=== PATIENT | female | born 1990 | race Caucasian/White ===

== ENCOUNTER 2016-08-16 03:45 | Emergency (ER) | payer OTHER ==
[~2016-08-16] VITALS: Ht 167.6 cm; Wt 60.6 kg
[~2016-08-16 03:45] MED LIST: AMOXICILLIN500 M1 PO; BACTRIM,SEPT1 TABLET PO; BENTYL20 MG PO; Chromagen, Feogen, M PO; DEPO-PROVER150 MG/ML IM; Flintstones PO; KEFLEX500 MG PO; MACROBID100 MG PO; MOTRIN800 MG PO; Motrin PO; NAPROSYN500 MG PO; NOHOMEMEDS; Natalcare Rx,Pramile PO; PERCOCET 5/31 TABLET PO; PREDNISONE20 MG PO; PRENATAL1 EACH PO; PROAIR HFA8.5 GM IH; PROPRANOLOL HCL80 M1 PO; ROBITUSSIN AC,T10 ML PO; TAPAZOLE10 MG PO; Tylenol Extra Streng PO; ULTRAM50 MG PO; ZOFRAN ODT4 MG PO; ZOFRAN4 MG PO
[2016-08-16 07:53] VITALS: BP 104/67
== END 2016-08-16 08:16 | disposition home or self-care (01) ==
LOC: EME → EDBD 03:45 → EME 03:45
DX: F10.129 Alcohol abuse with intoxication, unspecified (principal); Y90.5 Blood alcohol level of 100-119 mg/100 ml
CPT/HCPCS: 99281; 99284; G0480

== ENCOUNTER 2016-12-16 16:50 | Emergency (ER) | payer OTHER ==
[~2016-12-16] VITALS: Ht 162.6 cm; Wt 56.2 kg
[2016-12-16] MEDS ORDERED: MOTRIN800 MG PO (18:26)
[2016-12-16 18:54] VITALS: BP 124/79
== END 2016-12-16 18:55 | disposition home or self-care (01) ==
LOC: EME 16:50
DX: S60.221A Contusion of right hand, initial encounter (principal); W22.8XXA Striking against or struck by other objects, initial encounter; E03.9 Hypothyroidism, unspecified
CPT/HCPCS: 73130; 99281; 99283

== ENCOUNTER 2017-01-14 20:27 | Emergency (ER) | payer OTHER ==
[~2017-01-14] VITALS: Ht 162.6 cm; Wt 55.9 kg
[2017-01-14 21:07] LABS: HEMATOCRIT 40.6 % (36.0-46.0); MCH 27.8 PG (29.0-34.0); MCHC 32.5 G/DL (30.0-36.0); MCV 85.7 FL (83-99); MEAN PLAT.VOLUME 11.1 uM^3 (9.5-12.4); PLATELET COUNT 193 K/uL (156-360); RBC DIS.WIDTH-CV 12.4 % (11.8-14.6); RBC DIS.WIDTH-SD 38.6 % (39-53); RED BLOOD COUNT 4.74 M/uL (3.80-5.20); WHITE BLOOD COUNT 4.7 K/uL (4.1-10.2)
[2017-01-14 21:17] LABS: CHLORIDE 113 mEq/L (99-109); POTASSIUM 4.3 mEq/L (3.7-5.4); SODIUM 146 mEq/L (136-147)
[2017-01-14 21:19] LABS: GLUCOSE 82 mg/dL (70-99)
[2017-01-14 21:21] LABS: ANION GAP 9 MEQ/L (2-14)
[2017-01-14 21:23] LABS: GFR ESTIMATE (CALCULATED) > 59 mL/min/
[2017-01-14 21:24] LABS: UREA NITROGEN (BUN) 9 mg/dL (9-23)
[2017-01-14 22:43] LABS: D-DIMER ELISA < 150.00 ng/mLDDU (<230)
[2017-01-15 01:24] VITALS: BP 114/68
== END 2017-01-15 01:25 | disposition home or self-care (01) ==
LOC: EME 20:27
DX: R06.02 Shortness of breath (principal); R00.0 Tachycardia, unspecified; E05.90 Thyrotoxicosis, unspecified without thyrotoxic crisis or storm; Z91.14 Patient's other noncompliance with medication regimen
CPT/HCPCS: 71020; 80048; 84439; 84443; 84481; 85027; 85379; 93005; 99281; 99284; J7030

== ENCOUNTER 2017-02-05 11:06 | Emergency (ER) | payer OTHER ==
[~2017-02-05] VITALS: Ht 162.6 cm; Wt 56.3 kg
[2017-02-05 11:32] LABS: HEMATOCRIT 40.2 % (36.0-46.0); MCH 27.6 PG (29.0-34.0); MCHC 32.8 G/DL (30.0-36.0); MCV 84.1 FL (83-99); MEAN PLAT.VOLUME 11.3 uM^3 (9.5-12.4); PLATELET COUNT 183 K/uL (156-360); RBC DIS.WIDTH-CV 12.6 % (11.8-14.6); RBC DIS.WIDTH-SD 38.2 % (39-53); RED BLOOD COUNT 4.78 M/uL (3.80-5.20); WHITE BLOOD COUNT 4.2 K/uL (4.1-10.2)
[2017-02-05 11:41] LABS: CHLORIDE 110 mEq/L (99-109); POTASSIUM 3.6 mEq/L (3.7-5.4); SODIUM 142 mEq/L (136-147)
[2017-02-05 11:43] LABS: GLUCOSE 85 mg/dL (70-99)
[2017-02-05 11:44] LABS: ANION GAP 7 MEQ/L (2-14)
[2017-02-05 11:45] LABS: TOTAL BILIRUBIN 0.6 mg/dL (0.0-1.0)
[2017-02-05 11:46] LABS: ALKALINE PHOSPHATASE 99 IU/L (3-129); GFR ESTIMATE (CALCULATED) > 59 mL/min/
[2017-02-05 11:47] LABS: ADD MIUA? YES; BILIRUBIN NEGATIVE; BLOOD NEGATIVE; COLOR YELLOW ((YELLOW)); GLUCOSE (STRIP) NEGATIVE; KETONES NEGATIVE; LEUKOCYTES LARGE; NITRITE NEGATIVE; PROTEIN (STRIP) 30; SPECIFIC GRAVITY 1.019 (1.000-1.030)
[2017-02-05 11:48] LABS: UREA NITROGEN (BUN) 7 mg/dL (9-23)
[2017-02-05 11:58] LABS: QUANTITATIVE HCG < 4.0 MIU/ML
[2017-02-05 12:13] LABS: BACTERIA 1+ /HPF; CALCIUM OXALATE CRYSTALS 2+ /HPF; EPITHELIAL CELLS 1+ /HPF; HYALINE CASTS 0-5 /LPF; MUCUS 4+ /LPF; RED BLOOD CELLS 0-5 /HPF (0-5); UCUL ADDED? YES; WHITE BLOOD CELLS 20-30 /HPF (0-5)
[2017-02-05] MEDS ORDERED: NORCO 5/3251 TABLET PO (13:44)
[2017-02-05] MEDS ORDERED: MACROBID100 MG PO (13:44)
[2017-02-05 14:24] VITALS: BP 111/77
== END 2017-02-05 14:28 | disposition home or self-care (01) ==
LOC: EME 11:06
DX: N39.0 Urinary tract infection, site not specified (principal)
CPT/HCPCS: 80053; 81003; 84702; 85027; 87086; 99281; 99284

== ENCOUNTER → 2017-05-10 | Outpatient (CLI) | payer OTHER ==
[~2017-05-10] MED LIST changes: +NORCO 5/3251 TABLET PO
== END | disposition home or self-care (01) ==
LOC: NUC 04-12 07:30
DX: E05.00 Thyrotoxicosis with diffuse goiter without thyrotoxic crisis or storm (principal)
CPT/HCPCS: 78014; 78999; A9516

== ENCOUNTER → 2017-06-28 | Outpatient (CLI) | payer OTHER | END | disposition home or self-care (01) | LOC: NUC 06-21 09:00 | PROC: DWY5GDZ Isotope Administration to Whole Body using Iodine 131 (I-131) (ICD-10-PCS; principal; 2017-06-28) | DX: E05.90 Thyrotoxicosis, unspecified without thyrotoxic crisis or storm (principal) | CPT/HCPCS: 79005; A9517 ==

== ENCOUNTER 2017-10-19 10:49 | Emergency (ER) | payer OTHER ==
[~2017-10-19] VITALS: Ht 154.9 cm; Wt 62.2 kg
[2017-10-19 11:58] LABS: HEMOGLOBIN 13.9 G/DL (11.9-15.5); MCH 31.2 PG (29.0-34.0); MCHC 33.9 G/DL (30.0-36.0); MCV 92.1 FL (83-99); PLATELET COUNT 190 K/uL (156-360); RBC DIS.WIDTH-SD 50.9 % (39-53); RED BLOOD COUNT 4.45 M/uL (3.80-5.20); WHITE BLOOD COUNT 4.5 K/uL (4.1-10.2)
[2017-10-19 12:05] LABS: APPEARANCE CLEAR ((CLEAR)); BILIRUBIN NEGATIVE; BLOOD NEGATIVE; COLOR STRAW ((YELLOW)); GLUCOSE (STRIP) NEGATIVE; KETONES NEGATIVE; LEUKOCYTES SMALL; NITRITE NEGATIVE; PROTEIN (STRIP) NEGATIVE; SPECIFIC GRAVITY 1.009 (1.000-1.030); UROBILINOGEN 0.2 MG/DL (0.2-1.0)
[2017-10-19 12:07] LABS: BACTERIA NONE SEEN /HPF; EPITHELIAL CELLS RARE /HPF; MUCUS TRACE /LPF; RED BLOOD CELLS 0-5 /HPF (0-5); WHITE BLOOD CELLS 0-5 /HPF (0-5)
[2017-10-19 12:08] LABS: CHLORIDE 108 mEq/L (99-109); POTASSIUM 4.5 mEq/L (3.7-5.4); SODIUM 142 mEq/L (136-147)
[2017-10-19 12:10] LABS: GLUCOSE 85 mg/dL (70-99)
[2017-10-19 12:14] LABS: CREATININE 0.9 mg/dL (0.6-1.3); GFR ESTIMATE (CALCULATED) > 59 mL/min/; UREA NITROGEN (BUN) 12 mg/dL (9-23)
[2017-10-19 12:22] LABS: QUANTITATIVE HCG < 4.0 MIU/ML
[2017-10-19 13:19] VITALS: BP 110/78
== END 2017-10-19 13:19 | disposition home or self-care (01) ==
LOC: EME 10:49
PROVIDERS: Emergency Medicine
DX: R10.31 Right lower quadrant pain (principal); Z32.02 Encounter for pregnancy test, result negative; E05.00 Thyrotoxicosis with diffuse goiter without thyrotoxic crisis or storm
CPT/HCPCS: 80048; 81003; 84702; 85027; 87086; 99281; 99284